=== PATIENT | male | born 1985 | race Caucasian/White ===

== ENCOUNTER 2022-11-01 20:16 | Emergency (ER) | payer OTHER | END 2022-11-01 23:18 | disposition home or self-care (01) | LOC: JD.ED 20:16 | DX: S93.401A Sprain of unspecified ligament of right ankle, initial encounter (principal); S83.92XA Sprain of unspecified site of left knee, initial encounter; W11.XXXA Fall on and from ladder, initial encounter | CPT/HCPCS: 72100; 72100-26; 73562-26-LT; 73562-LT; 73610-26-RT; 73610-RT; 99283 ==